=== PATIENT | male | born 1965 | race Caucasian/White ===

== ENCOUNTER 2017-01-09 07:53 | Emergency (ER) | payer BC | END 2017-01-09 08:59 | disposition short-term general hospital (02) | LOC: ER 07:53 | DX: I63.50 Cerebral infarction due to unspecified occlusion or stenosis of unspecified cerebral artery (principal); I10 Essential (primary) hypertension; F17.290 Nicotine dependence, other tobacco product, uncomplicated | CPT/HCPCS: 36415; 96365 ==